=== PATIENT | female | born 1950 | race Caucasian/White ===

== ENCOUNTER 2018-02-17 11:51 | Day surgery (SDC) | payer OTHER ==
[2018-02-10 13:07] VITALS: BMI 33.8
[2018-02-17 12:32] VITALS: TEMP 98.1
[2018-02-17] MEDS ORDERED: PROPOFOL 20 ML ONE (13:32)
[2018-02-17 14:23] VITALS: BP 117/66; PULSE 64
--- NOTE | 2018-02-19 12:40 | PATH ---
Surgical Pathology Report Patient Name: TRISH SANABRIA [facility]. Rec. #: [id number] /Age/Gender: 1950 (Age: 67) / F Account: [id number] Location: [facility]-ENDOSCOPY Taken: 02/17/2018 Received: 02/17/2018 Reported: 02/19/2018 Physicians: Gale Solomon M.D. Specimen(s) Received A: BX DUODENUM B: BX ANTRUM C: BX GE JUNCTION Clinical History Dyspepsia Postoperative diagnosis: Ulcer GE junction, gastritis Final Diagnosis A. DUODENUM AND BULB, BIOPSY: DUODENAL MUCOSA WITHOUT SIGNIFICANT PATHOLOGIC FINDINGS. B. STOMACH, ANTRUM, BIOPSY: GASTRIC ANTRAL MUCOSA WITH MILD CHRONIC GASTRITIS. IMMUNOHISTOCHEMICAL STAIN FOR H. PYLORI IS NEGATIVE. C. GASTROESOPHAGEAL (GE) JUNCTION, BIOPSY: GASTRIC CARDIAC TYPE MUCOSA WITH MILD CHRONIC GASTRITIS. NO INTESTINAL METAPLASIA, DYSPLASIA, OR SQUAMOUS MUCOSA IDENTIFIED. Electronically Signed Gale Abarca M.D. Gross Description A. Received in formalin, labeled "BX duodenum and bulb" are 2 winkler, irregular portions of soft tissue measuring 0.3 and 0.4 cm. in greatest dimension. The specimens are submitted in toto in one cassette. B. Received in formalin, labeled "BX antrum" are 2 winkler, irregular portions of soft tissue measuring 0.3 and 0.2 cm. in greatest dimension. The specimens are submitted in toto in one cassette. C. Received in formalin, labeled "BX GE junction" is a winkler, irregular portion of soft tissue measuring 0.3 cm. in greatest dimension. The specimen is submitted in toto in one cassette. ANA/02/18/2018 deshaun/02/18/2018
== END 2018-02-17 14:25 | disposition home or self-care (01) ==
LOC: FASU-ENDO 11:51
PROVIDERS: ATTEND Internal Medicine Gastroenterology
PROC: 0DB68ZX Excision of Stomach, Via Natural or Artificial Opening Endoscopic, Diagnostic (ICD-10-PCS; 2018-02-17)
PROC: 0DB48ZX Excision of Esophagogastric Junction, Via Natural or Artificial Opening Endoscopic, Diagnostic (ICD-10-PCS; 2018-02-17)
PROC: 0DB98ZX Excision of Duodenum, Via Natural or Artificial Opening Endoscopic, Diagnostic (ICD-10-PCS; principal; 2018-02-17 13:15)
DX: K29.50 Unspecified chronic gastritis without bleeding (principal); R13.10 Dysphagia, unspecified; K22.10 Ulcer of esophagus without bleeding
CPT/HCPCS: 82962; 88305-TC; 88342-TC

== ENCOUNTER 2018-04-14 10:31 | Day surgery (SDC) | payer OTHER ==
[2018-04-13 16:47] VITALS: BMI 33.8
[2018-04-14] MEDS ORDERED: PROPOFOL 20 ML ONE ×2 (10:34)
[2018-04-14 13:19] VITALS: TEMP 98.2
[2018-04-14 13:36] VITALS: BP 119/74; PULSE 60
--- NOTE | 2018-04-16 16:37 | PATH ---
Surgical Pathology Report Patient Name: TRISH SANABRIA [facility]. Rec. #: [id number] /Age/Gender: 1950 (Age: 67) / F Account: [id number] [facility] Taken: 04/14/2018 Received: 04/14/2018 Reported: 04/16/2018 Physicians: Gale Solomon M.D. Specimen(s) Received A: DUODENUM POLYPS B: BX ANTRUM Clinical History Surveillance of ulcer Final Diagnosis A. DUODENAL POLYPS, BIOPSY: POLYPOID DUODENAL MUCOSA SHOWING MILD CHRONIC DUODENITIS AND ISMAEL'S GLAND HYPERPLASIA. B. ANTRUM, BIOPSY: GASTRIC MUCOSA WITH NO SIGNIFICANT PATHOLOGIC FINDINGS. IMMUNOSTAIN IS NEGATIVE FOR H. PYLORI ORGANISMS. Electronically Signed Sara Hope M.D. Gross Description A. Received in formalin, labeled "duodenal polyp" are 2 winkler, irregular portions of soft tissue averaging 0.3 cm. in greatest dimension. The specimens are submitted in toto in one cassette. B. Received in formalin, labeled "antrum" are 2 winkler, irregular portions of soft tissue measuring 0.2 and 0.3 cm. in greatest dimension. The specimens are submitted in toto in one cassette. 04/15/2018 saudi04/15/2018
== END 2018-04-14 13:40 | disposition home or self-care (01) ==
LOC: FASU-ENDO 10:31
PROVIDERS: ATTEND Internal Medicine Gastroenterology
PROC: 0DB68ZX Excision of Stomach, Via Natural or Artificial Opening Endoscopic, Diagnostic (ICD-10-PCS; 2018-04-14)
PROC: 0DB98ZX Excision of Duodenum, Via Natural or Artificial Opening Endoscopic, Diagnostic (ICD-10-PCS; principal; 2018-04-14 12:45)
DX: K31.7 Polyp of stomach and duodenum (principal); K31.89 Other diseases of stomach and duodenum; K29.80 Duodenitis without bleeding; Z87.11 Personal history of peptic ulcer disease
CPT/HCPCS: 82962